=== PATIENT | male | born 1985 | race American Indian/Alaskan Native ===

== ENCOUNTER 2020-10-08 19:05 | Emergency (ER) | payer OTHER ==
[2020-10-08] MEDS ORDERED: dexAMETHasone 20 MG/5 ML VIAL IV ONE (19:48)
[2020-10-08] MEDS ORDERED: SODIUM CHLORIDE 0.9% 1000 ML 1,000 ML IV ONE (19:48)
--- NOTE | 2020-10-08 19:55 | Event Note ---
ED Screening Note Date of service: 10/08/20 Time: 19:51 ED Screening Note: Patient complains of sore throat, difficulty swallowing, throat swelling, and voice change. Onset this past Saturday He reports associated cough, headache and dizziness. He denies any fever or chills. This initial assessment/diagnostic orders/clinical plan/treatment(s) is/are subject to change based on patients health status, clinical progression and re- assessment by fellow clinical providers in the ED. Further treatment and workup at subsequent clinical providers discretion. Patient/guardian urged not to elope from the ED as their condition may be serious if not clinically assessed and managed. Initial orders include: CT soft tissue neck, labs
--- NOTE | 2020-10-08 20:32 | XRay Report ---
CHEST PA AND LATERAL VIEWS INDICATION: cough. COMPARISON: None FINDINGS: Support devices: None Heart: Normal Lungs/Pleura: No acute pulmonary or pleural findings. IMPRESSION: 1. No significant abnormality. Signer Name: Avery Arthur MD Signed: 10/08/2020 8:27 PM Workstation Name: [id number]
[2020-10-08] MEDS ORDERED: MORPHINE 4 MG/1 ML INJ IV ONE (20:59)
--- NOTE | 2020-10-08 21:38 | Cat Scan Report ---
CT NECK WITH INTRAVENOUS CONTRAST AND MULTIPLANAR RECONSTRUCTION CLINICAL HISTORY: throat swelling/pain/difficulty TECHNIQUE: 2.5 mm thick contiguous axial scans were obtained from the skull base down to the aortic arch during intravenous contrast administration. In addition to evaluation of axial source images sagittal and co toro multiplanar reconstructions were produced and reviewed for this report. Contrast dose report: ML administered intravenously All CT imaging studies performed at this facility utilize dose modulation, iterative reconstruction o r weight based dosing, if appropriate, to obtain the lowest achievable radiation dose. FINDINGS: AIRWAY: There is prominent enlargement of the palatine tonsils and adenoid tissue. In addition there is soft tissue thickening involving the soft palate. Evaluation of tonsillar or peritonsillar abscess . These inflammatory changes result in narrowing of the airway in the region of the oropharynx and be tween the nasopharynx and oropharynx. Clinical evaluation to assess the adequacy of the patient's air way is advised. Hypopharynx larynx and visualized portions of the subglottic airway all have a normal appearance. LYMPH NODES: Normal-sized cervical nodes are present. There is no indication of pathological lymphade nopathy. ORAL CAVITY/FLOOR OF MOUTH: No abnormalities are seen in evaluation of the oral cavity and tongue. Th e floor the mouth has a normal appearance. MAJOR SALIVARY GLANDS: The parotid and submandibular salivary glands have a normal appearance. NASAL CAVITY AND PARANASAL SINUSES: Evaluation of the nasal cavity reveals no abnormality. The parana jina sinuses are free from inflammatory mucosal disease. ORBITS:No abnormalities of the visualized portions of the orbits are identified. Globes, optic nerves , extraocular muscles and lacrimal glands have an unremarkable appearance. THYROID GLAND: The thyroid gland is normal in size and homogeneous in attenuation. No focal thyroid l esions are identified. TEMPORAL BONES:Mastoid air cells are normally pneumatized. CERVICAL SPINE: Evaluation of the cervical spine reveals no significant abnormality. Normal alignment is maintained. No significant degenerative changes are identified. LUNG APICES: Evaluation of the lung apices reveals no abnormality. There is no indication of lung nod ule or infiltrate. The visualized portions of the superior mediastinum have an unremarkable appearanc e. CONTRAST ADMINISTRATION: Enhancement of normal vascular structures is demonstrated. No areas of abnor mal contrast enhancement are identified. IMPRESSION: 1. There is enlargement of the palatine tonsils bilaterally as well as of the adenoids and soft palat e. These inflammatory changes near the airway. Careful clinical assessment of the adequacy of the pat ient's airway is advised. 2. I do not identify evidence of a tonsillar, peritonsillar or parapharyngeal abscess. Signer Name: Anthony Thompson MD Signed: 10/08/2020 9:33 PM Workstation Name: [id number]
[2020-10-08 21:57] LABS: Basophils # (Auto) 0.1 K/mm3 (0.0-0.1); Basophils % (Auto) 0.8 % (0.0-1.8); Eosinophils # (Auto) 0.2 K/mm3 (0.0-0.4); Eosinophils % (Auto) 1.7 % (0.0-4.3); Hemoglobin 12.8 gm/dl (11.8-15.2); Lymphocytes # (Auto) 1.7 K/mm3 (1.2-5.4); Lymphocytes % (Auto) 17.4 % (13.4-35.0); Mean Corpuscular HGB Conc 33 % (32-34); Mean Corpuscular Volume 85 fl (84-94); Monocytes # (Auto) 1.2 K/mm3 (0.0-0.8); Monocytes % (Auto) 12.1 % (0.0-7.3); Platelet Count 347 K/mm3 (140-440); Red Cell Distribution Width 16.5 % (13.2-15.2)
--- NOTE | 2020-10-08 22:06 | Emergency Department Report ---
- General Chief Complaint: Headache Stated Complaint: MOUTH SWOLLEN/SORE THROAT Time Seen by Provider: 10/08/20 19:47 Source: patient Mode of arrival: Ambulatory Limitations: No Limitations - History of Present Illness Initial Comments: Patient is a 34-year-old male presents emergency room complaints of a sore throat that began 5 days ago. He has associated discomfort with swallowing and difficulty swallowing. He states he is having difficulty swallowing his secretions. He states his voice feels slightly muffled. He states he is also having headache, chills, generalized weakness, decreased appetite, fatigue, and cough. He denies any fever, nausea, vomiting, diarrhea, shortness of breath. No known sick contacts. He states he did just recently travel to [place]. Past medical history of hypertension. Allergy to penicillin. - Related Data Home Medications Medication Instructions Recorded Confirmed Last Taken No Known Home Medications [No 07/25/15 07/25/15 Unknown Reported Home Medications] Allergies Allergy/AdvReac Type Severity Reaction Status Date / Time Penicillins Allergy Swelling Verified 07/25/15 08:01 ED Review of Systems ROS: Stated complaint: MOUTH SWOLLEN/SORE THROAT Other details as noted in HPI Comment: All other systems reviewed and negative ED Past Medical Hx - Past Medical History Previous Medical History?: Yes Hx Hypertension: Yes (BORDERLINE) Additional medical history: OBESITY - Surgical History Past Surgical History?: No - Social History Smoking Status: Never Smoker Substance Use Type: None - Medications Home Medications: Home Medications Medication Instructions Recorded Confirmed Last Taken Type No Known Home Medications [No 07/25/15 07/25/15 Unknown History Reported Home Medications] ED Physical Exam - General Limitations: No Limitations General appearance: alert, in no apparent distress - Head Head exam: Present: atraumatic, normocephalic - Eye Eye exam: Present: normal appearance - ENT ENT exam: Present: mucous membranes moist, other (right TM and canal are normal, left TM with mild erythema, no TM perforation, there is significant edema in the soft palate and tonsillar hypertrophy bilaterally, no exudates, maintaining airway at this time, voice muffled, no tonuge elevation, no submandibular edema) - Respiratory Respiratory exam: Present: normal lung sounds bilaterally. Absent: respiratory distress, wheezes, rales, rhonchi, stridor, chest wall tenderness, accessory muscle use, decreased breath sounds, prolonged expiratory - Cardiovascular Cardiovascular Exam: Present: regular rate, normal rhythm, normal heart sounds. Absent: systolic murmur, diastolic murmur, rubs, gallop - Neurological Exam Neurological exam: Present: alert, oriented X3 - Psychiatric Psychiatric exam: Present: normal affect, normal mood - Skin Skin exam: Present: warm, dry, intact ED Course Vital Signs 10/08/20 10/08/20 10/08/20 19:10 21:15 21:45 Temperature 98.7 F Pulse Rate 97 H Respiratory 18 16 16 Rate Blood Pressure 168/101 Blood Pressure [Left] O2 Sat by Pulse 96 Oximetry 10/08/20 23:25 Temperature 98.2 F Pulse Rate 82 Respiratory 16 Rate Blood Pressure Blood Pressure 165/113 [Left] O2 Sat by Pulse 100 Oximetry - Reevaluation(s) Reevaluation #1: 10/08/20 22:40 Dr. Springer, ER attending evaluated patient at bedside, advised to transfer patient to a facility with ENT services as we do not have ENT or OMFS on-call - Consultations Consultation #1: 10/08/20 22:48 Spoke with Jose Bowers transfer line, will call back with ENT doctor 10/08/20 23:[address] Sales, ENT, advised ER to ER transfer to [facility], [place] and ENT will consult on patient in the emergency department ED Medical Decision Making - Lab Data Result diagrams: 10/08/20 20:43 10/08/20 20:43 Lab Results 10/08/20 10/08/20 Range/Units 20:43 20:43 WBC 9.9 (4.5-11.0) K/mm3 RBC 4.60 (3.65-5.03) M/mm3 Hgb 12.8 (11.8-15.2) gm/dl Hct 39.0 (35.5-45.6) % MCV 85 (84-94) fl MCH 28 (28-32) pg MCHC 33 (32-34) % RDW 16.5 H (13.2-15.2) % Plt Count 347 (140-440) K/mm3 Lymph % (Auto) 17.4 (13.4-35.0) % Mclennan % (Auto) 12.1 H (0.0-7.3) % Eos % (Auto) 1.7 (0.0-4.3) % Baso % (Auto) 0.8 (0.0-1.8) % Lymph # (Auto) 1.7 (1.2-5.4) K/mm3 Mclennan # (Auto) 1.2 H (0.0-0.8) K/mm3 Eos # (Auto) 0.2 (0.0-0.4) K/mm3 Baso # (Auto) 0.1 (0.0-0.1) K/mm3 Seg Neutrophils % 68.0 (40.0-70.0) % Seg Neutrophils # 6.7 (1.8-7.7) K/mm3 Sodium 136 L (137-145) mmol/L Potassium 3.8 (3.6-5.0) mmol/L Chloride 98.5 (98-107) mmol/L Carbon Dioxide 29 (22-30) mmol/L Anion Gap 12 mmol/L BUN 18 (9-20) mg/dL Creatinine 1.0 (0.8-1.3) mg/dL Estimated GFR > 60 ml/min BUN/Creatinine Ratio 18 % Glucose 86 (75-100) mg/dL Calcium 8.7 (8.4-10.2) mg/dL Total Bilirubin < 0.20 (0.1-1.2) mg/dL AST 18 (5-40) units/L ALT 21 (7-56) units/L Alkaline Phosphatase 78 (35-129) units/L Total Protein 6.5 (6.3-8.2) g/dL Albumin 3.6 L (3.9-5) g/dL Albumin/Globulin Ratio 1.2 % - Radiology Data Radiology results: report reviewed Ordering Physician: DB MAHONEY Date of Service: 10/08/20 Procedure(s): CT neck w con Accession Number(s): [id number] cc: DB MAHONEY CT NECK WITH INTRAVENOUS CONTRAST AND MULTIPLANAR RECONSTRUCTION CLINICAL HISTORY: throat swelling/pain/difficulty TECHNIQUE: 2.5 mm thick contiguous axial scans were obtained from the skull base down to the aortic arch during intravenous contrast administration. In addition to evaluation of axial source images sagittal and coronal multiplanar reconstructions were produced and reviewed for this report. Contrast dose report: ML administered intravenously All CT imaging studies performed at this facility utilize dose modulation, iterative reconstruction or weight based dosing, if appropriate, to obtain the lowest achievable radiation dose. FINDINGS: AIRWAY: There is prominent enlargement of the palatine tonsils and adenoid tissue. In addition there is soft tissue thickening involving the soft palate. Evaluation of tonsillar or peritonsillar abscess. These inflammatory changes result in narrowing of the airway in the region of the oropharynx and between the nasopharynx and oropharynx. Clinical evaluation to assess the adequacy of the patient's airway is advised. Hypopharynx larynx and visualized portions of the subglottic airway all have a normal appearance. LYMPH NODES: Normal-sized cervical nodes are present. There is no indication of pathological lymphadenopathy. ORAL CAVITY/FLOOR OF MOUTH: No abnormalities are seen in evaluation of the oral cavity and tongue. The floor the mouth has a normal appearance. MAJOR SALIVARY GLANDS: The parotid and submandibular salivary glands have a normal appearance. NASAL CAVITY AND PARANASAL SINUSES: Evaluation of the nasal cavity reveals no abnormality. The paranasal sinuses are free from inflammatory mucosal disease. ORBITS:No abnormalities of the visualized portions of the orbits are identified. Globes, optic nerves, extraocular muscles and lacrimal glands have an unremarkable appearance. THYROID GLAND: The thyroid gland is normal in size and homogeneous in attenuation. No focal thyroid lesions are identified. TEMPORAL BONES:Mastoid air cells are normally pneumatized. CERVICAL SPINE: Evaluation of the cervical spine reveals no significant abnormality. Normal alignment is maintained. No significant degenerative changes are identified. LUNG APICES: Evaluation of the lung apices reveals no abnormality. There is no indication of lung nodule or infiltrate. The visualized portions of the superior mediastinum have an unremarkable appearance. CONTRAST ADMINISTRATION: Enhancement of normal vascular structures is demonstrated. No areas of abnormal contrast enhancement are identified. IMPRESSION: 1. There is enlargement of the palatine tonsils bilaterally as well as of the adenoids and soft palate. These inflammatory changes near the airway. Careful clinical assessment of the adequacy of the patient's airway is advised. 2. I do not identify evidence of a tonsillar, peritonsillar or parapharyngeal abscess. Signer Name: Anthony Thompson MD Signed: 10/08/2020 9:33 PM Workstation Name: [id number] Transcribed By: Dictated By: Anthony Thompson MD Electronically Authenticated By: Anthony Thompson MD Signed Date/Time: 10/08/202132 DD/ 25 TD/TT: Ordering Physician: DB MAHONEY Date of Service: 10/08/20 Procedure(s): XR chest routine 2V Accession Number(s): [id number] cc: DB MAHONEY Fluoro Time In Minutes: CHEST PA AND LATERAL VIEWS INDICATION: cough. COMPARISON: None FINDINGS: Support devices: None Heart: Normal Lungs/Pleura: No acute pulmonary or pleural findings. IMPRESSION: 1. No significant abnormality. Signer Name: Avery Arthur MD Signed: 10/08/2020 8:27 PM Workstation Name: [id number] Transcribed By: TM Dictated By: Avery Arthur MD Electronically Authenticated By: Avery Arthur MD Signed Date/Time: 10/08/202026 DD/ 26 TD/TT: - Medical Decision Making Patient is a 34-year-old male presents emergency room complaints of a sore throat that began 5 days ago. He has associated discomfort with swallowing and difficulty swallowing. He states he is having difficulty swallowing his secretions. He states his voice feels slightly muffled. He states he is also having headache, chills, generalized weakness, decreased appetite, fatigue, and cough. He denies any fever, nausea, vomiting, diarrhea, shortness of breath. No known sick contacts. He states he did just recently travel to [place]. Past medical history of hypertension. Allergy to penicillin. Vitals with elevated blood pressure, otherwise stable, patient has history of chronic hypertension. On exam:right TM and canal are normal, left TM with mild erythema, no TM perforation, there is significant edema in the soft palate and tonsillar hypertrophy bilaterally, no exudates, maintaining airway at this time, voice muffled, no tonuge elevation, no submandibular edema, no stridor. Orders placed prior to my examination. Labs are stable. Chest x-ray with no acute process. CT neck with IV contrast: 1. There is enlargement of the palatine tonsils bilaterally as well as of the adenoids and soft palate. These inflammatory changes near the airway. Careful clinical assessment of the adequacy of the patient's airway is advised. 2. I do not identify evidence of a tonsillar, peritonsillar or parapharyngeal abscess. Patient given clindamycin, dexamethasone, IV fluids, morphine.Dr. Alim, ER attending evaluated patient at bedside, advised to transfer patient to a facility with ENT services as we do not have ENT or OMFS on-call. Spoke with Dr. Sales, ENT, advised ER to ER transfer to [facility], [place] and ENT will consult on patient in the emergency department. Patient was agreeable with transfer and transported via EMS, he was stable at time of transfer and maintaining airway. Critical care attestation.: If time is entered above; I have spent that time in minutes in the direct care of this critically ill patient, excluding procedure time. ED Disposition Clinical Impression: Tonsillar hypertrophy, Soft palate edema, Adenoid hypertrophy, Narrowing of airway Disposition: DC/TX-70 ANOTHER TYPE HLTHCARE Is pt being admited?: No Does the pt Need Aspirin: No Condition: Stable Referrals: PRIMARY CARE, [Primary Care Provider] - 3-5 Days Time of Disposition: 23:02 Print Language: BAHAMIAN
[2020-10-08 22:19] LABS: Alanine Aminotransferase 21 units/L (7-56); Albumin 3.6 g/dL (3.9-5); BUN/Creatinine Ratio 18; Blood Urea Nitrogen 18 mg/dL (9-20); Calcium 8.7 mg/dL (8.4-10.2); Hemolysis Index 21
[2020-10-08 23:27] VITALS: BP 165/113
== END 2020-10-09 00:59 | disposition other institution (70) ==
LOC: ED 19:05
DX: J35.3 Hypertrophy of tonsils with hypertrophy of adenoids (principal); J39.8 Other specified diseases of upper respiratory tract; R60.9 Edema, unspecified; I10 Essential (primary) hypertension; Z88.0 Allergy status to penicillin
CPT/HCPCS: 36415; 70491; 71046; 80053; 85025; 96365; 96375; 99285; J1100; J2270; J7030; Q9967